=== PATIENT | male | born 1990 | race Two or more races ===

== ENCOUNTER → 2025-09-30 | Outpatient (CLI) | payer BC, SELFPAY ==
[2025-09-30 10:52] LABS: Alanine Aminotransferase 41 U/L (10-49); Albumin, Serum 4.7 gm/dL (3.5-5.0); Albumin/Globulin Ratio 1.7 (1.2-2.2); Alkaline Phosphatase 69 U/L (46-116); Anion Gap 9 (7-16); Aspartate Amino Transferase 31 U/L (0-34); BUN/Creatinine Ratio 11 Ratio (12-20); Bilirubin,Total 0.6 mg/dL (0.3-1.2); Blood Urea Nitrogen 9 mg/dL (9-23); Calcium 9.4 mg/dL (8.3-10.6); Calcium (Corrected) 9.4 mg/dL (8.5-10.1); Carbon Dioxide 28.1 mMol/L (20.0-31.0); Chloride 105 mMol/L (98-107); Creatinine (Component) 0.8 mg/dL (0.6-1.3); Globulin 2.7 gm/dL (2.3-3.5); Glucose 105 mg/dL (74-106); Osmolality,Calculated 281 (275-295); Potassium 4.3 mMol/L (3.4-5.1); Sodium 142 mMol/L (136-145); Total Protein 7.4 gm/dL (5.7-8.2); eGFR > 60 See Note
== END | disposition home or self-care (01) ==
LOC: COPL 09:45
PROVIDERS: PCP Family Medicine; Referring Provider Nurse Practitioner Family; Visit Provider Nurse Practitioner Family
DX: R74.01 Elevation of levels of liver transaminase levels (principal); E78.5 Hyperlipidemia, unspecified
CPT/HCPCS: 36415; 80053